=== PATIENT | male | born 1995 | race Two or more races ===

== ENCOUNTER 2019-04-17 03:34 | Emergency (ER) | payer SELFPAY ==
[~2019-04-17] VITALS: Ht 167.6 cm; Wt 72.6 kg
--- NOTE | 2019-04-17 03:57 | PHYS DOC ---
Adult General Chief Complaint Chief Complaint: FLANK PAIN HPI HPI Patient is a 24-year-old male who presents with complaint of left flank pain that started earlier this evening. Patient rates pain to be in 10 out of 10. He reports to nausea and vomiting but is had no diarrhea. He denies any fever. He states that nothing improves the pain.[] Review of Systems Review of Systems Constitutional: Denies fever or chills [] Respiratory: Denies cough or shortness of breath [] Cardiovascular: No additional information not addressed in HPI [] GI: Complains of left-sided flank/abdominal pain with nausea and vomiting. Denies diarrhea [] : Denies dysuria or hematuria [] Musculoskeletal: Complains of left-sided back pain [] All other systems were reviewed and found to be within normal limits, except as documented in this note. Current Medications Current Medications Current Medications Medications (Trade) Dose Ordered Sig/Rizwan Start Time Stop Time Status Last Admin Dose Admin Hydromorphone HCl (Dilaudid) 1 mg PRN Q15MIN PRN 04/17/19 04:00 04/17/19 06:30 DC 04/17/19 04:46 1 MG Ketorolac Tromethamine (Toradol 30mg Vial) 30 mg 1X ONCE 04/17/19 04:15 04/17/19 04:40 DC 04/17/19 04:49 30 MG Ondansetron HCl (Zofran) 4 mg 1X ONCE 04/17/19 04:15 04/17/19 04:40 DC 04/17/19 04:47 4 MG Sodium Chloride 1,000 ml @ 1,000 mls/hr Q1H 04/17/19 04:00 04/17/19 04:59 DC 04/17/19 04:45 1,000 MLS/HR Tamsulosin HCl (Flomax) 0.8 mg 1X ONCE 04/17/19 05:15 04/17/19 05:16 DC 04/17/19 05:24 0.8 MG Allergies Allergies Allergies Coded Allergies Type Severity Reaction Last Updated Verified No Known Drug Allergies 04/17/19 No Physical Exam Physical Exam Constitutional: Well developed, well nourished, no acute distress, non-toxic appearance. [] HENT: Normocephalic, atraumatic, bilateral external ears normal, oropharynx moist, no oral exudates, nose normal. [] Eyes: PERRLA, EOMI, conjunctiva normal, no discharge. [] Neck: Normal range of motion, no tenderness, supple. [] Cardiovascular: Regular rate and rhythm[] Lungs & Thorax: Bilateral breath sounds clear to auscultation [] Abdomen: Bowel sounds normal, soft, with left lower quadrant tenderness. [] Skin: Warm, dry, no erythema, no rash. [] Extremities: No tenderness, no cyanosis, no clubbing, ROM intact, no edema. [] Neurologic: Alert and oriented X 3, no focal deficits noted. [] Current Patient Data Vital Signs Vital Signs Date Time Temp Pulse Resp B/P (MAP) Pulse Ox O2 Delivery O2 Flow Rate FiO2 04/17/19 06:17 72 18 115/61 (79) 95 Room Air 04/17/19 03:37 99.0 99.0 Lab Values Laboratory Tests Test 04/17/19 04:00 04/17/19 05:41 White Blood Count 11.7 x10^3/uL (4.0-11.0) H Red Blood Count 4.85 x10^6/uL (4.30-5.70) Hemoglobin 14.0 g/dL (13.0-17.5) Hematocrit 41.4 % (39.0-53.0) Mean Corpuscular Volume 85 fL (79-100) Mean Corpuscular Hemoglobin 29 pg (25-35) Mean Corpuscular Hemoglobin Concent 34 g/dL (31-37) Red Cell Distribution Width 13.7 % (11.5-14.5) Platelet Count 332 x10^3/uL (140-400) Neutrophils (%) (Auto) 65 % (31-73) Lymphocytes (%) (Auto) 26 % (24-48) Monocytes (%) (Auto) 8 % (0-9) Eosinophils (%) (Auto) 1 % (0-3) Basophils (%) (Auto) 1 % (0-3) Neutrophils # (Auto) 7.6 x10^3/uL (1.8-7.7) Lymphocytes # (Auto) 3.0 x10^3/uL (1.0-4.8) Monocytes # (Auto) 0.9 x10^3/uL (0.0-1.1) Eosinophils # (Auto) 0.1 x10^3/uL (0.0-0.7) Basophils # (Auto) 0.1 x10^3/uL (0.0-0.2) Sodium Level 139 mmol/L (136-145) Potassium Level 3.6 mmol/L (3.5-5.1) Chloride Level 103 mmol/L (98-107) Carbon Dioxide Level 25 mmol/L (21-32) Anion Gap 11 (6-14) Blood Urea Nitrogen 19 mg/dL (8-26) Creatinine 1.1 mg/dL (0.7-1.3) Estimated GFR (Cockcroft-Gault) 80.9 BUN/Creatinine Ratio 17 (6-20) Glucose Level 126 mg/dL (70-99) H Calcium Level 9.2 mg/dL (8.5-10.1) Total Bilirubin 0.3 mg/dL (0.2-1.0) Aspartate Amino Transferase (AST) 17 U/L (15-37) Alanine Aminotransferase (ALT) 26 U/L (16-63) Alkaline Phosphatase 64 U/L (46-116) Total Protein 7.5 g/dL (6.4-8.2) Albumin 4.1 g/dL (3.4-5.0) Albumin/Globulin Ratio 1.2 (1.0-1.7) Lipase 74 U/L (73-393) Urine Collection Type Unknown Urine Color Yellow Urine Clarity Clear Urine pH 6.0 Urine Specific [place] 1.020 Urine Protein Negative mg/dL (NEG-TRACE) Urine Glucose (UA) Negative mg/dL (NEG) Urine Ketones (Stick) Negative mg/dL (NEG) Urine Blood Moderate (NEG) Urine Nitrite Negative (NEG) Urine Bilirubin Negative (NEG) Urine Urobilinogen Dipstick 0.2 mg/dL (0.2 mg/dL) Urine Leukocyte Esterase Negative (NEG) Urine RBC 11-20 /HPF (0-2) Urine WBC 1-4 /HPF (0-4) Urine Squamous Epithelial Cells Few /LPF Urine Bacteria Few /HPF (0-FEW) Urine Mucus Mod /LPF Laboratory Tests 04/17/19 04:00 Laboratory Tests 04/17/19 04:00 EKG EKG [] Radiology/Procedures Radiology/Procedures [] Impressions: PROCEDURE: CT ABDOMEN PELVIS WO CONTRAST CT ABDOMEN PELVIS WO CONTRAST History: Left flank pain. Technique: Noncontrast examination of the abdomen and pelvis. Coronal and sagittal reconstructions were performed. Exposure: One or more of the following individualized dose reduction techniques were utilized for this examination: 1. Automated exposure control 2. Adjustment of the mA and/or kV according to patient size 3. Use of iterative reconstruction technique. Comparison: None Findings: Lower chest: No consolidation or pleural effusion. Abdomen and pelvis: The liver, spleen, adrenal glands, pancreas and gallbladder are unremarkable. Mild left hydronephrosis. Mild left hydroureter. 2 mm left ureterovesical junction calculus. Bilateral nonobstructing renal calculi. Mild left perinephric and periureteral fat stranding. No right hydronephrosis. Normal appendix. No evidence of bowel obstruction. No pathologic lymphadenopathy. No ascites. Decompressed or bladder. Bones: No pathologic osseous lesions. Impression: 1. 2 mm left ureterovesical junction obstructing calculus contributing to mild left hydronephrosis with periureteral/perinephric fat stranding. 2. Bilateral nonobstructing renal calculi. Electronically signed by: Goran Gonzalez DO (04/17/2019 4:17 AM) [facility] Course & Med Decision Making Course & Med Decision Making Pertinent Labs and Imaging studies reviewed. (See chart for details) [] Dragon Disclaimer Dragon Disclaimer This electronic medical record was generated, in whole or in part, using a voice recognition dictation system. Departure Departure Impression: Primary Impression: Ureterolithiasis Disposition: HOME, SELF-CARE Condition: STABLE Patient Instructions: Kidney Stones Scripts Tamsulosin Hcl (FLOMAX) 0.4 Mg Cap.er.24h 1 CAP PO DAILY, #7 CAP Prov: DEREK LANCASTER Jr., DO 04/17/19 Promethazine Hcl (PROMETHAZINE HCL) 25 Mg Tablet 1 TAB PO PRN Q6HRS PRN for NAUSEA, #12 TAB Prov: DEREK LANCASTER Jr., DO 04/17/19 Oxycodone/Apap 7.5-325 (PERCOCET 7.5-325 MG TABLET ) 1 Each Tablet 1 TAB PO QIDPRN PRN for PAIN MDD 4 Tablet(s), #12 TAB 0 Refills Prov: DEREK LANCASTER Jr., DO 04/17/19 DEREK LANCASTER Jr., DO Apr 17, 2019 03:57
[2019-04-17] MEDS ORDERED: HYDROmorphone 2 MG/ML VIAL IV/SQ PRN (04:00)
[2019-04-17] MEDS ORDERED: IV NORMAL SALINE 1000ML BAG 1,000 ML IV SCH (04:00)
[2019-04-17 04:11] LABS: BASO # 0.1 x10^3/uL (0.0-0.2); BASO % 1 % (0-3); EOS # 0.1 x10^3/uL (0.0-0.7); EOS % 1 % (0-3); HEMATOCRIT 41.4 % (39.0-53.0); LYMPH % 26 % (24-48); MEAN CORPUSCULAR HEMOGLOBIN 29 pg (25-35); MEAN CORPUSCULAR HGB CONC 34 g/dL (31-37); MEAN CORPUSCULAR VOLUME 85 fL (79-100); MONO # 0.9 x10^3/uL (0.0-1.1); MONO % 8 % (0-9); NEUT # 7.6 x10^3/uL (1.8-7.7); NEUT % 65 % (31-73); PLATELET COUNT 332 x10^3/uL (140-400); RED BLOOD COUNT 4.85 x10^6/uL (4.30-5.70); RED CELL DISTRIBUTION WIDTH 13.7 % (11.5-14.5); WHITE BLOOD COUNT 11.7 x10^3/uL (4.0-11.0)
[2019-04-17] MEDS ORDERED: ONDANSETRON PF 4 MG/2 ML VIAL. IV ONE (04:15)
[2019-04-17] MEDS ORDERED: KETOROLAC 30 MG/ML VIAL. IV ONE (04:15)
[2019-04-17 04:17] LABS: CALCIUM 9.2 mg/dL (8.5-10.1); CREATININE 1.1 mg/dL (0.7-1.3); GFR 80.9; POTASSIUM 3.6 mmol/L (3.5-5.1)
--- NOTE | 2019-04-17 04:19 | RAD ---
CT ABDOMEN PELVIS WO CONTRAST History: Left flank pain. Technique: Noncontrast examination of the abdomen and pelvis. Coronal and sagittal reconstructions were performed. Exposure: One or more of the following individualized dose reduction techniques were utilized for this examination: 1. Automated exposure control 2. Adjustment of the mA and/or kV according to patient size 3. Use of iterative reconstruction technique. Comparison: None Findings: Lower chest: No consolidation or pleural effusion. Abdomen and pelvis: The liver, spleen, adrenal glands, pancreas and gallbladder are unremarkable. Mild left hydronephrosis. Mild left hydroureter. 2 mm left ureterovesical junction calculus. Bilateral nonobstructing renal calculi. Mild left perinephric and periureteral fat stranding. No right hydronephrosis. Normal appendix. No evidence of bowel obstruction. No pathologic lymphadenopathy. No ascites. Decompressed or bladder. Bones: No pathologic osseous lesions. Impression: 1. 2 mm left ureterovesical junction obstructing calculus contributing to mild left hydronephrosis with periureteral/perinephric fat stranding. 2. Bilateral nonobstructing renal calculi. Electronically signed by: Goran Gonzalez DO (04/17/2019 4:17 AM) [facility]
[2019-04-17 04:22] LABS: ALBUMIN 4.1 g/dL (3.4-5.0); ALBUMIN/GLOBULIN RATIO 1.2 (1.0-1.7); TOTAL BILIRUBIN 0.3 mg/dL (0.2-1.0); TOTAL PROTEIN 7.5 g/dL (6.4-8.2)
[2019-04-17] MEDS ORDERED: PROM25TA10 PO (04:57)
[2019-04-17] MEDS ORDERED: OXYC1TAB19 PO (04:57)
[2019-04-17] MEDS ORDERED: TAMS0.4C97 PO (04:57)
[2019-04-17] MEDS ORDERED: TAMSULOSIN 0.4 MG CAP.ER.24H. PO ONE (05:15)
[2019-04-17 05:54] LABS: BILIRUBIN,URINE NEGATIVE (NEG); CLARITY,URINE CLEAR; COLOR,URINE YELLOW; NITRITE,URINE NEGATIVE (NEG); PROTEIN,URINE NEGATIVE (NEG-TRACE); UROBILINOGEN,URINE 0.2 mg/dL (0.2 mg/dL)
[2019-04-17 06:04] LABS: SQUAMOUS EPITHELIAL CELL,UR FEW /LPF
[2019-04-17 06:05] LABS: BACTERIA,URINE FEW /HPF (0-FEW)
[2019-04-17 06:17] VITALS: BP 115/61
== END 2019-04-17 06:20 | disposition home or self-care (01) ==
LOC: ER 03:34
DX: N13.2 Hydronephrosis with renal and ureteral calculous obstruction (principal); R11.2 Nausea with vomiting, unspecified
CPT/HCPCS: 36415; 74176; 80053; 81001; 83690; 85025; 96361; 96374; 96375; 99285; J1170; J1885; J2405; J7030